=== PATIENT | male | born 1990 | race Hispanic/Latino ===

== ENCOUNTER 2017-07-15 08:13 | Emergency (ER) | payer SELFPAY ==
[2017-07-15] MEDS ORDERED: HYDROcodone/Acetaminophen 10/325 mg Tablet ONE (08:34)
[2017-07-15] MEDS ORDERED: Ibuprofen 800 MG TAB ONE (08:34)
[2017-07-15 08:45] LABS: Bilirubin Negative (Negative); Blood, Urine Negative (Negative); Clarity Clear (Clear); Glucose, Urine (Dipstick) Negative (Negative); Leukocyte Negative (Negative); Nitrite Negative (Negative); Protein, Urine (Dipstick) Negative (Neg-Trace); Urobilinogen 0.2 mg/dL (0.2-1.0); pH, Urine 7.5 (5.0-9.0)
--- NOTE | 2017-07-15 10:32 | RAD ---
PA AND LATERAL CHEST: Indication: Right sided back pain from fall. Comparison: None. FINDINGS: Lungs are clear. Cardiomediastinal silhouette is within normal limits. No definite acute osseous abno rmality is evident. IMPRESSION: No acute cardiopulmonary abnormality. POS: [facility]
== END 2017-07-15 09:29 | disposition home or self-care (01) ==
LOC: BURERS 08:13
DX: S22.31XA Fracture of one rib, right side, initial encounter for closed fracture (principal); S30.1XXA Contusion of abdominal wall, initial encounter; W19.XXXA Unspecified fall, initial encounter
CPT/HCPCS: 71046; 81003